=== PATIENT | male | born 2005 | race Asian ===

== ENCOUNTER 2024-12-20 08:59 | Emergency (ER) | payer OTHER ==
[~2024-12-20] VITALS: Ht 185.4 cm; Wt 81.4 kg
[2024-12-20 09:01] VITALS: TEMP 97.8
[2024-12-20 12:00] VITALS: BP 109/60; O2SAT 100
[2024-12-20] MEDS ORDERED: IBUP600T42 PO (12:15)
== END 2024-12-20 12:23 | disposition home or self-care (01) ==
LOC: M ED 08:59
DX: S76.012A Strain of muscle, fascia and tendon of left hip, initial encounter (principal); S83.92XA Sprain of unspecified site of left knee, initial encounter; X58.XXXA Exposure to other specified factors, initial encounter; Y92.9 Unspecified place or not applicable; Y93.9 Activity, unspecified; Y99.1 Military activity